=== PATIENT | female | born 1960 | race Caucasian/White ===

== ENCOUNTER → 2016-07-07 | Outpatient (CLI) | payer BC ==
[~2016-07-07] MED LIST: ALBUAER2 INH; ALL180 PO; DTR5 PO; FLUO20CA35 PO; SNG10 PO
--- NOTE | 2016-07-07 14:52 | MAMMOGRAPHY REPORT ---
BILATERAL DIGITAL SCREENING MAMMOGRAM TOMOSYNTHESIS WITH CAD: 07/07/2016 CLINICAL HISTORY: Routine screening. Patient has no complaints. Routine screening. Patient has no complaints. TECHNIQUE: Breast tomosynthesis in addition to standard 2D mammography was performed. Current study was also evaluated with a Computer Aided Detection (CAD) system. COMPARISON: Comparison is made to exams dated: 07/02/2015 mammogram, 08/19/2011 mammogram, 08/05/2010 mammogram, 08/04/2009 mammogram - [facility], 07/14/2006, and 07/31/2004 mammogram - [facility]. BREAST COMPOSITION: The tissue of both breasts is extremely dense, which lowers the sensitivity of mammography. FINDINGS: There is evidence of prior reduction mammoplasty. Scattered benign-appearing macro calci fications in the breasts. No new suspicious mass, architectural distortion or cluster of microcalci fications is seen. IMPRESSION: ACR BI-RADS CATEGORY 1: NEGATIVE There is no mammographic evidence of malignancy. A 1 year screening mammogram is recommended. The p atient will receive written notification of the results. Approximately 10% of breast cancers are not detected with mammography. A negative mammographic repor t should not delay biopsy if a clinically suggestive mass is present. Judith Bro M.D. ay/:07/07/2016 10:13:30 Sales Architect: Disha GILBERT(R)(M), [facility] letter sent: Normal 1/2 BI-RADS Code: ACR BI-RADS Category 1: Negative
== END | disposition home or self-care (01) ==
LOC: C.MAMM 09:12
PROVIDERS: ATTEND Family Medicine
DX: Z12.31 Encounter for screening mammogram for malignant neoplasm of breast (principal)

== ENCOUNTER → 2017-04-05 | Outpatient (CLI) | payer BC | END | disposition home or self-care (01) | LOC: C.LABMFLN 08:17 | PROVIDERS: ATTEND Family Medicine | DX: K29.70 Gastritis, unspecified, without bleeding (principal) ==